=== PATIENT | male | born 1950 | race American Indian/Alaskan Native ===

== ENCOUNTER 2018-03-13 18:34 | Emergency (ER) | payer MEDICARE, OTHER ==
[~2018-03-13] VITALS: Ht 175.3 cm; Wt 83.0 kg
[~2018-03-13 18:34] MED LIST: DOCU-28 PO; HYDR-565 PO
[2018-03-13] MEDS ORDERED: ondansetron/PF 4mg/2ml inj IV ONE (18:55)
[2018-03-13] MEDS ORDERED: normal saline 1000ML IV soln IVB ONE (18:55)
[2018-03-13] MEDS ORDERED: meclizine 12.5mg tablet PO ONE (18:55)
[2018-03-13 19:10] LABS: BASOPHILS # (AUTO) 0.1 X10'3 (0-0.2); BASOPHILS % (AUTO) 0.5 % (0-1); EOSINOPHILS # (AUTO) 0.5 X10'3 (0-0.9); HEMOGLOBIN 13.4 g/dl (14.0-17.9); LYMPHOCYTES # (AUTO) 1.8 X10'3 (1.1-4.8); LYMPHOCYTES % (AUTO) 15.9 % (21-51); MEAN CORPUSCULAR HEMOGLOBIN 31.1 PG (27.0-31.0); MEAN CORPUSCULAR HGB CONC 34.5 % (33.0-36.5); MEAN CORPUSCULAR VOLUME 90.3 FL (78-98); MEAN PLATELET VOLUME 8.6 FL (7.4-10.4); MONOCYTES # (AUTO) 1.1 X10'3 (0-0.9); MONOCYTES % (AUTO) 9.8 % (2-12); NEUTROPHILS # (AUTO) 7.8 X10'3 (1.8-7.7); NEUTROPHILS % (AUTO) 69.8 % (42-75); PLATELET COUNT 242 X10'3 (140-440); RED BLOOD COUNT 4.32 X10'6 (4.70-6.10); RED CELL DISTRIBUTION WIDTH 14.5 % (11.5-14.5); WHITE BLOOD COUNT 11.2 X10'3 (4.5-11.0)
[2018-03-13 19:25] LABS: ALANINE AMINOTRANSFERASE 20 U/L (12-78); ALBUMIN 3.6 G/DL (3.4-5.0); ALBUMIN/GLOBULIN RATIO 1.1 (1.1-1.5); ALKALINE PHOSPHATASE 64 IU/L (46-116); ANION GAP 9 (8-16); ASPARTATE AMINO TRANSFERASE 14 U/L (10-37); BILIRUBIN,TOTAL 0.6 MG/DL (0.1-1.0); BLOOD UREA NITROGEN 14 MG/DL (7-18); BUN/CREATININE RATIO 10.4 (5.4-32.0); CALCIUM 9.1 MG/DL (8.5-10.1); CHLORIDE 106 MMOL/L (99-107); CREATININE 1.35 MG/DL (0.60-1.10); GLUCOSE 110 MG/DL (70-104); MAGNESIUM 2.2 MG/DL (1.5-2.4); POTASSIUM 4.1 MMOL/L (3.5-5.1); SODIUM 141 MMOL/L (135-145); TOTAL CARBON DIOXIDE 26.2 MMOL/L (24-32); TOTAL PROTEIN 6.9 G/DL (6.4-8.2); eGFR 52 ML/MIN
[2018-03-13 19:51] LABS: CLARITY,URINE SLIGHTLY CLOUDY (Clear); COLOR,URINE YELLOW (Yellow); GLUCOSE, URINE NEGATIVE (Neg); KETONES,URINE NEGATIVE (Neg); LEUKOCYTE ESTERASE ,URINE SMALL (Neg); NITRITES, URINE POSITIVE (Neg); OCCULT BLOOD,URINE NEGATIVE (Neg); PH,URINE 5.5 (4.8-8.0); PROTEIN,URINE NEGATIVE (Neg); UROBILINOGEN,URINE 0.2 E.U/dL (0.2-1.0)
[2018-03-13 19:57] LABS: UA COLLECTION TYPE CLN CATCH MIDSTREAM
[2018-03-13 19:58] LABS: BACTERIA,URINE 2+ /HPF (Neg); RBC,URINE NONE SEEN /HPF (0-2)
[2018-03-13 19:59] LABS: SQUAMOUS EPITHELIAL CELL,UR FEW /LPF (FEW)
[2018-03-13] MEDS ORDERED: CEPH500C2 PO (20:39)
[2018-03-13] MEDS ORDERED: cephalexin 250mg capsule PO ONE (20:45)
[2018-03-13 21:06] VITALS: BP 101/59
== END 2018-03-13 21:07 | disposition home or self-care (01) ==
LOC: ER 18:34
DX: N39.0 Urinary tract infection, site not specified (principal); R55 Syncope and collapse; E78.00 Pure hypercholesterolemia, unspecified; E05.90 Thyrotoxicosis, unspecified without thyrotoxic crisis or storm; Z98.890 Other specified postprocedural states; Z59.0 Homelessness; Z79.899 Other long term (current) drug therapy
CPT/HCPCS: 36415; 71045; 80053; 81001; 83735; 84484; 85025; 87077; 87088; 87186; 93005; 96361; 96374; 99285; J2405; J7030; J8597